=== PATIENT | male | born 1985 | race Caucasian/White ===

== ENCOUNTER 2020-11-01 12:02 | Emergency (ER) | payer SELFPAY ==
[2020-11-01 12:05] VITALS: PULSE 114; RESP 18; TEMP 36.9; O2SAT 99
--- NOTE | 2020-11-01 12:11 | DI.RAD.S_ITS ---
PROCEDURE: XR ANKLE LT MIN 3V INDICATIONS: fall TECHNIQUE: 3 views of the ankle were acquired. COMPARISON: None. FINDINGS: Bones: No fractures or dislocations. Ankle mortise is normally aligned. No suspicious bony lesions. Soft tissues: No tibiotalar joint effusion. Achilles tendon appears normal. IMPRESSION: No evidence acute bony abnormality of the left ankle. If clinical suspicion and/or symptoms persist, further assessment with repeat plain films, or advanced imaging (e.g., CT, MRI, or bone scan) may be helpful for further assessment. Dictated by: Jesús Levine M.D. on 11/01/2020 at 11:32 Approved by: Jesús Levine M.D. on 11/01/2020 at 11:34
[2020-11-01] MEDS: OXYCODONE/ACETAMINOPHEN 5/325 TABLET 1 TAB PO ×2 (13:25→14:54)
[2020-11-01] MEDS: IBUPROFEN 400 MG TABLET PO (13:25)
--- NOTE | 2020-11-01 13:30 | PC.NURSE ---
reports he stepped in a rabbit hole and turned his ankle. reports he has repeated ankle injuries. says this hurts lower than normal.
--- NOTE | 2020-11-01 14:47 | ED_ITS ---
HPI - Extremity Injury (Lower) General Chief Complaint: Extremity Injury, Lower Stated Complaint: Possible broken ankle Time Seen by Provider: 11/01/20 12:28 Source: patient Mode of arrival: Wheelchair Limitations: no limitations History of Present Illness HPI Narrative: Otherwise healthy 35-year-old man who stepped off a low porch and interval rabbit hole injuring his left foot and ankle last night. It was more swollen and increasingly tender to the point he was unable to bear any weight by this morning so he comes in for further evaluation. Related Data Home Medications Medication Instructions Recorded Confirmed amlodipine 5 mg tablet 5 mg PO DAILY 11/01/20 11/01/20 Previous Rx's Medication Instructions Recorded oxycodone-acetaminophen 5 mg-325 1 tab PO Q6H #20 tab 11/01/20 mg tablet Allergies Allergy/AdvReac Type Severity Reaction Status Date / Time No Known Drug Allergies Allergy Verified 11/01/20 12:10 Review of Systems Review of Systems Narrative: Pertinent positive and negative findings as per HPI Remainder of review of systems is otherwise unremarkable for Constitutional: Fevers, chills, weakness ENT: No sore throat, neck pain, ear pain CV: Chest pain, palpitations, Respiratory: Cough, wheeze, dyspnea GI: Nausea, vomiting, diarrhea, : Dysuria, hematuria, Patient History Social History Smoking Status: Current every day smoker Smoking Status: Current every day smoker alcohol intake frequency: 3 or more drinks per day Substance Use Type: marijuana Exam Narrative Exam Narrative: General: Alert appropriate in no acute distress Respiratory: Able to speak in full sentences, no obvious respiratory distress Skin: No obvious rashes, warm and dry Neurologic: Grossly intact no obvious asymmetries or abnormalities Psych: appropriate insight and affect, cooperative Extremity: Left ankle is tender at both malleoli, swelling over the dorsum of the foot and some bruising over the plantar surface. Neurovascularly intact no injury to the knee and no tenderness with proximal fibula Initial Vital Signs Initial Vital Signs: Vital Signs Temperature 98.4 F 11/01/20 12:05 Pulse Rate 114 H 11/01/20 12:05 Respiratory Rate 18 11/01/20 12:05 Pulse Oximetry 99 11/01/20 12:05 Course Orders Ordered: ED Orders 11/01/20 12:11 XR ankle LT min 3V Stat Discontinued Medications Ibuprofen (Ibuprofen 400 Mg Tablet) 400 mg PO NOW ONE Stop: 11/01/20 12:30 Last Admin: 11/01/20 13:25 Dose: 400 mg Documented by: IZABELLA Oxycodone/Acetaminophen (Oxycodone/Acetaminophen 5/325 Tablet) 1 tab PO NOW ONE Stop: 11/01/20 12:30 Last Admin: 11/01/20 13:25 Dose: 1 tab Documented by: IZABELLA Oxycodone/Acetaminophen (Oxycodone/Acetaminophen 5/325 Tablet) 1 tab PO NOW ONE Stop: 11/01/20 14:49 Last Admin: 11/01/20 14:54 Dose: 1 tab Documented by: TRENT Vital Signs Vital signs: Vital Signs - 8 hr 11/01/20 12:05 11/01/20 14:50 Temperature 98.4 F Pulse Rate 114 H 100 H Respiratory Rate 18 20 Blood Pressure 127/77 Pulse Oximetry 99 99 MDM - Extremity Injury (Lower) Imaging Data X-ray ankle: Radiologist's Impression: FINDINGS: Bones: No fractures or dislocations. Ankle mortise is normally aligned. No s uspicious bony lesions. Soft tissues: No tibiotalar joint effusion. Achilles tendon appears normal. IMPRESSION: No evidence acute bony abnormality of the left ankle. If clinical suspicion and/or symptoms persist, further assessment with repeat plain films, or advanced imaging (e.g., CT, MRI, or bone scan) may be helpful for further assessment. Dictated by: Jesús Levine M.D. on 11/01/2020 at 11:32 MDM Narrative Medical decision making narrative: Injury to ankle in the dorsum of the foot with no radiologic abnormalities. His placed in a air stirrup and pain is treated. No evidence of complicating fractures, infection or more proximal injury. He is safe for home discharge Discharge Plan Departure Patient Disposition: Home Clinical Impression: Ankle sprain and strain Instructions: DI for Ankle Sprain Activity Restrictions/Additional Instructions: Thank you for coming in today You did not break your ankle or your foot Please use the ankle splint as needed. Keep her foot elevated, crutches as needed, ice will be helpful to period Using 400 mg of ibuprofen (2 [id number] pills) and 1 Tylenol every 6 hours can be very helpful in controlling pain. For severe pain use 400 mg of ibuprofen and 1-2 Percocet. Do expect to hurt more tomorrow and you should start feeling better after that. I hope you heal quickly Prescriptions: New oxycodone-acetaminophen 5-325 mg tablet 1 tab PO Q6H Qty: 20 RF: 0 No Action amlodipine 5 mg tablet 5 mg PO DAILY RF: 0
[2020-11-01 14:50] VITALS: BP 127/77; PULSE 100; RESP 20; O2SAT 99
== END 2020-11-01 15:02 | disposition home or self-care (01) ==
PROVIDERS: Emergency Provider Emergency Medicine
DX: S93.402A Sprain of unspecified ligament of left ankle, initial encounter (principal); S96.912A Strain of unspecified muscle and tendon at ankle and foot level, left foot, initial encounter; X50.1XXA Overexertion from prolonged static or awkward postures, initial encounter
CPT/HCPCS: 29540; 73610; 99283